=== PATIENT | male | born 1945 | race Caucasian/White ===

== ENCOUNTER 2016-06-24 10:31 | Day surgery (SDC) | payer OTHER, MEDICAID ==
[2016-06-24] MEDS ORDERED: MIDAZOLAM 2 MG/2 ML VIAL ONE (11:27)
[2016-06-24] MEDS ORDERED: fentaNYL 100 MCG/2 ML INJ ONE (11:27)
[2016-06-24] MEDS ORDERED: TRIAMCINOLONE ACETONIDE 40 MG/ML VIAL ONE (11:30)
[2016-06-24] MEDS ORDERED: DEXAMETHASONE 10 MG/ML VIAL ONE (11:30)
[2016-06-24] MEDS ORDERED: IOPAMIDOL (ISOVUE-M 200) 20 ML VIAL IV ONE (11:31)
[2016-06-24] MEDS ORDERED: LIDOCAINE 1% 30 ML SDV ONE (11:31)
[2016-06-24] MEDS ORDERED: BUPIVACAINE 0.25% 30 ML SDV ONE (11:31)
[2016-06-24] MEDS ORDERED: NA BICARBONATE 50 MEQ/50 ML VIAL ONE (11:31)
--- NOTE | 2016-06-24 15:12 | GPN ---
DATE OF PROCEDURE: 06/24/2016 TIME SEEN: 11:30 a.m. HISTORY OF PRESENT ILLNESS: This patient presents complaining of rapidly worsening left L5-S1 radic ular pain, with declining functional status over the last month. 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 He 1st began having pain in his left thigh, and the pain has gradually traveled down to his left lat eral calf and is now in his foot and going out his toes. It has become more and more difficult for him to function physically, and he is in a wheelchair today. He is not taking any blood thinners or antibiotics and denies allergies to shellfish, latex, contras t dye, and iodine. ANESTHESIA: Local with Versed 4 mg and fentanyl 100 mcg IV. PRE-PROCEDURE CONSENT: The preprocedure consent was obtained after the risks, benefits, and alterna tives of the procedure were explained to the patient. The patient agreed and signed the consent for the procedure. The risks include, but are not limited to, nerve injury, spinal cord injury, brain injury or stroke, muscle injury, infection, adverse medication effects, bleeding, increased pain, , spinal heada breezy and any other unforeseen consequences. The patient agreed and signed the consent for the proced ure. PROCEDURE VERIFICATION AND TIMEOUT: Verbal verification of patient, site and procedure was done. A ll present were in agreement. Please see nursing note for time of timeout. DESCRIPTION OF PROCEDURE: The patient was identified and brought into the procedure room. In the p reop area and during attempted positioning, he was given a total of 4 mg of Versed and 100 mcg of fe ntanyl IV. Despite this, he remained in extreme pain and had a very difficult time tolerating trans ition to the procedure room table. He lay on the procedure room table in the position, and wa s not able to lie prone. After 10 or 15 minutes of waiting for the sedation to take effect and allowing the patient to move s lowly, he was still not able to get out of the position. My judgment was that not only would be difficult for him to lie still for the procedure, but that injection of contrast dye and medicati on could be extremely painful for him. Therefore, I elected not to do the procedure. He was brought back to the recovery room and given a prescription for Medrol Dosepak, and for repeat MRI of the lumbar spine without contrast. He stayed in the recovery room for 30 more minutes with no apparent complications and was discharged home in good condition with a ride. He experienced no side effect of sedation and was instructed not to drive, operate heavy machinery, or make any life-altering decisions today. He was instructed to call our clinic with non-urgent con cerns or 911 in an emergency. He verbalized understanding and was discharged home with the instruct ions. ASSESSMENT AND PLAN: Left L4-L5 and left L5-S1 transforaminal epidural steroid injection, planned b ut not done due to patient's inability to tolerate positioning, despite 4 mg Versed and 100 mg fenta nyl IV. The patient was sent home with a Medrol Dosepak, and an order for a lumbar spine MRI without contras t. If he obtains adequate relief from the Medrol Dosepak, I will consider attempting the procedure again. He will follow up with our clinic. /[id number]/MODL
== END 2016-06-24 12:45 | disposition home or self-care (01) ==
LOC: FPAT 10:31 → FSGY 10:31 → EEVIPCON 11:30 → FPAT 12:45
PROVIDERS: ATTEND Anesthesiology
PROC: 3E0S3BZ Introduction of Anesthetic Agent into Epidural Space, Percutaneous Approach (ICD-10-PCS; principal; 2016-06-24 11:30)
DX: M51.16 Intervertebral disc disorders with radiculopathy, lumbar region (principal); M48.07 Spinal stenosis, lumbosacral region
CPT/HCPCS: J2250; J3010; J3301; Q9966

== ENCOUNTER → 2016-07-01 | Outpatient (CLI) | payer OTHER, MEDICAID | LOC: FIMAGING 15:28 | PROVIDERS: ATTEND Anesthesiology | DX: M51.36 Other intervertebral disc degeneration, lumbar region (principal); M48.06 Spinal stenosis, lumbar region ==

== ENCOUNTER 2016-07-22 08:40 | Day surgery (SDC) | payer OTHER, MEDICAID ==
[2016-07-22] MEDS ORDERED: LIDOCAINE 1% 2 ML INJ ONE (09:20)
[2016-07-22] MEDS ORDERED: DEXAMETHASONE 10 MG/ML VIAL ONE (09:35)
[2016-07-22] MEDS ORDERED: TRIAMCINOLONE ACETONIDE 40 MG/ML VIAL ONE (09:35)
[2016-07-22] MEDS ORDERED: BUPIVACAINE 0.25% 30 ML SDV ONE (09:35)
[2016-07-22] MEDS ORDERED: LIDOCAINE 1% 30 ML SDV ONE (09:36)
[2016-07-22] MEDS ORDERED: IOPAMIDOL (ISOVUE-M 200) 20 ML VIAL IV ONE (09:37)
[2016-07-22] MEDS ORDERED: NA BICARBONATE 50 MEQ/50 ML VIAL ONE (09:37)
[2016-07-22] MEDS ORDERED: fentaNYL 100 MCG/2 ML INJ ONE (09:44)
[2016-07-22] MEDS ORDERED: MIDAZOLAM 2 MG/2 ML VIAL ONE (09:44)
[2016-07-22] MEDS ORDERED: LR 1,000 ML IV SCH (10:00)
--- NOTE | 2016-07-22 10:56 | GPN ---
[f rep st] PROCEDURE NOTE DATE OF PROCEDURE: 07/22/2016 TIME: 10:00 a.m. HISTORY OF PRESENT ILLNESS: The patient presents for left L4-5 and L5-S1 transforaminal epidural st eroid injections. These injections were attempted on 06/24/2016 but the patient had so much pain wi th positioning that he was not able to lie flat on the procedure room table and the procedure was ca nceled. In the interim he has discovered that if he lies flat in the back seat of the car on the wa y here he is in much less pain. He is lying flat in the bed in the preop area today. He is not augusto ing any blood thinners or antibiotics and denies allergies to shellfish, latex, contrast dye, and io dine. PROCEDURE: Left L4-L5 and left L5-S1 transforaminal epidural steroid. DIAGNOSIS: Lumbar radiculopathy. SITE: Left low back. PROVIDER: Lina Cruz MD. ANESTHESIA: Local with Versed 4 mg and fentanyl 100 mcg IV. COMPLICATIONS: None. ESTIMATED BLOOD LOSS: Minimal. PRE-PROCEDURE CONSENT: The preprocedure consent was obtained after the risks, benefits, and alterna tives of the procedure were explained to the patient. The risks include, but are not limited to, ne rve injury, spinal cord injury, paralysis, brain injury or stroke, muscle injury, infection, adverse medication effects, bleeding, increased pain, and any other unforeseen consequences. The pat ient agreed and signed the consent for the procedure. PROCEDURE VERIFICATION AND TIMEOUT: Verbal verification of patient, site and procedure was done. A ll present were in agreement. Please see nursing notes for time of time-out. PROCEDURE NOTE: The patient was identified and placed in a prone position. Standard monitors were put in place. A left-sided oblique fluoroscopic view was obtained with the superior articular proce ss of L5 aligned with the pedicle of L4. The skin over the intended target site, the 6 o'clock posi tion of the left L4 pedicle was marked and prepped in the usual sterile fashion with ChloraPrep and a fenestrated drape. Then, using sterile technique, 1 mL of subcutaneous 1% lidocaine was instilled into the superficial soft tissues for local anesthesia over the above-stated region. The tip of a 22-gauge, 3-1/2 inch spinal needle was advanced toward the 6 o'clock position under intermittent flu oroscopic guidance toward the anterior epidural space of the left L4 foramen. Confirmation of proper needle position was made with AP, oblique, and lateral fluoroscopic views. A fter negative aspiration for blood and cerebrospinal fluid, 0.5 mL of nonionic contrast agent was in jected. Fluoroscopic imaging revealed a clear outline of the L4 spinal nerve with proximal spread o f agent through the neural foramen into the epidural space without vascular uptake. Then, 3 mL of i njectate containing 40 mg triamcinolone 0.5 mg of 1% lidocaine and 1.5 mL of preservative-free supriya l saline was administered slowly after negative aspiration. The patient complained of a paresthesia that was concordant with his typical painful area upon injection. The spinal needle was re-stylett ed and removed and the paresthesia resolved. The exact same procedure was then performed at the L5-S1 level using a 5 inch, 22-gauge spinal needl e. The patient again felt a transient paresthesia corresponding to his painful area. Vital signs were stable throughout the procedure. The patient tolerated the procedure well and was monitored in the recovery room with no apparent complications and was discharged home in good condit ion with a ride. He experienced no side effects from sedation and was instructed not to drive, oper ate heavy machinery, or make any life altering decisions today. He was instructed to call our clini c with non-urgent concerns or 911 in an emergency. In particular he was taught that new weakness or numbness, changes in bowel or bladder control, fever and swelling or redness over the injection sit e are all urgent concerns that would warrant calling 911 or going to an emergency care facility. He verbalized understanding and was discharged home with postprocedure instructions. ASSESSMENT AND PLAN: Left L4-5 and L5-S1 transforaminal epidural steroid injections done today with out complication. /[id number]/MODL
== END 2016-07-22 12:00 | disposition home or self-care (01) ==
LOC: FSGY 08:40
PROVIDERS: ATTEND Anesthesiology
DX: M54.16 Radiculopathy, lumbar region (principal)
CPT/HCPCS: J2250; J3010; J3301; Q9966

== ENCOUNTER → 2017-05-23 | Outpatient (CLI) | payer OTHER, MEDICAID | LOC: FIMAGING 14:22 | PROVIDERS: ATTEND Physician Assistant | DX: M41.56 Other secondary scoliosis, lumbar region (principal); M51.25 Other intervertebral disc displacement, thoracolumbar region; M47.26 Other spondylosis with radiculopathy, lumbar region; M24.28 Disorder of ligament, vertebrae; M25.78 Osteophyte, vertebrae ==